=== PATIENT | male | born 1990 | race Caucasian/White ===

== ENCOUNTER 2023-08-02 10:11 | Outpatient (CLI) | payer OTHER, SELFPAY ==
--- NOTE | 2023-08-02 10:22 | XR_ITS ---
FINAL REPORT CLINICAL HISTORY: right elbow pain COMPARISON: None FINDINGS: AP, oblique, and lateral views of the right elbow were obtained. There is no prior exam for comparison. There is no acute fracture or dislocation. Joint space is preserved. There is no joint effusion. There is a 5 mm linear foreign body present in the antecubital fossa subcutaneous tissues. IMPRESSION: No acute osseous abnormality of the right elbow. 5 mm linear foreign body in the antecubital fossa subcutaneous tissues. Reviewed, Interpreted and Dictated by Ranulfo Brar III, MD Transcribed by Tory Olguin Authenticated and [facility]
== END 2023-08-02 23:59 ==
LOC: RAD 10:12
PROVIDERS: PCP Pediatrics; Visit Provider Orthopaedic Surgery
DX: M25.521 Pain in right elbow (principal)
CPT/HCPCS: 73080

== ENCOUNTER 2024-08-10 14:34 | Emergency (ER) | payer OTHER, SELFPAY ==
[2024-08-10 14:38] VITALS: BP 146/102; PULSE 89; RESP 18; TEMP 36.4; O2SAT 98; BMI 26.6
--- NOTE | 2024-08-10 15:48 | ED_ITS ---
Discharge Plan Disposition Patient Disposition: Home, Self-Care Prescriptions Prescriptions: New sulfamethoxazole-trimethoprim [Bactrim DS] 800-160 mg tablet 1 tab PO BID 10 Days Qty: 20 0RF No Action varenicline tartrate [Chantix Starting Month Box] 0.5 mg (11)- 1 mg (42) tablets,dose pack See Rx Instructions PO PER PKG DIR Qty: 53 0RF Rx Instructions: PO PER PKG DIR Referrals Follow up/Referrals: Juan Hernandez MD [Primary Care Provider] - See instructions Activity Restrictions/Add. Instructions Additional Instructions/Restrictions: You had an abscess on your buttock with surrounding cellulitis. Incision and drainage was performed please floss the vessel loop as discussed once a day over the next week you may cut it out as soon as there is no longer any blood or pus or drainage. Return with any significant worsening over 48 to 72 hours. Finish your antibiotic course. Clinical Impressions Clinical Impression: Abscess of buttock, Cellulitis of buttock Instructions Patient Instructions: DI for Skin Abscess Print Language Print Language: Mongolian Discharge ED Provider: Geovany Crow General Adult HPI <Baldomero Mckinney MD - Last Filed: 08/10/24 15:50> General Chief complaint: Skin/Abscess/Foreign Body Stated complaint: poss. boil on left buttocks w/swelling w/nausea Time Seen by Provider: 08/10/24 15:23 Mode of Arrival: Ambulatory Source of Information: Patient Limitations: No Limitations Description of Symptoms (Recalled from ER Triage Doc. by RN): Pt presents states he has a boil on his left buttocks. Pt states he has had it for 3 days. History of Present Illness HPI narrative: 34-year-old with pain and erythema over the last 3 days on his left superior aspect of his buttock. Had does have a history of abscesses. No other significant past medical history. Related Data Previous Rx's ?Medication ?Instructions ?Recorded varenicline tartrate 0.5 mg (11)-1 See Rx Instructions PO PER PKG DIR 07/14/ mg (42) tablets in a dose pack #53 tabs (Chantix Starting Month Box) sulfamethoxazole 800 1 tab PO BID 10 days #20 tabs 08/10/24 mg-trimethoprim 160 mg tablet (Bactrim DS) Allergies Allergy/AdvReac Type Severity Reaction Status Date / Time Penicillins Allergy Unknown Unknown Verified 08/02/23 10:35 allergy reaction REPLACED BY [facility] <Baldomero Mckinney MD - Last Filed: 08/10/24 15:50> REPLACED BY [facility] Disclaimer: The information contained in this section may have been updated after the patient was seen, as this information can be updated by other users. Medical History Active asthma Social History Smoking Status: Current every day smoker tobacco type: cigarettes packs per day: 1 second hand exposure: Yes alcohol intake: never substance use type: denies use current occupational status: employed and other Travel in the last 8 weeks: None caffeine: Yes Have you lived/traveled outside [place] in past 30 days?: No Contact w/someone who lives/traveled outside [place] past 30 days?: No Exposure to someone with infectious disease in past 14 days?: No Do you have a fever (greater than 100.4 F or 38 C)?: No Have you tested positive for COVID-19: No Exposed to someone with COVID-19 in past 14 days?: No Do you have a sore throat?: No Do you have a cough?: No Do you have any weakness?: No Do you have any diarrhea?: No Are you experiencing any unusual bleeding?: No Do you have any muscle aches/pain?: No Do you have any abdominal pain?: No Are you experiencing loss of taste or smell?: No Other Medical History Have you received the Flu Vaccine for this season: No Have you received the Pneumonia Vaccine: No <Baldomero Mckinney MD - Last Filed: 08/10/24 15:50> ROS Obtained: Yes All systems reviewed & no additional complaints except as documented Physical Exam <Baldomero Mckinney MD - Last Filed: 08/10/24 15:50> General General appearance: alert and in no apparent distress Respiratory Respiratory exam: Present normal lung sounds bilaterally Cardiovascular Cardiovascular exam: Present regular rate Back Exam Back 1 view image: 2 1. Erythema and tenderness and fluctuance Neurological Exam Neurological exam: Present alert and oriented X3 Medical Decision Making <Baldomero Mckinney MD - Last Filed: 08/10/24 15:50> Medical Records Screening: Per USPSTF and CDC recommendations, given the prevalence of disease in our region, it is our hospital?s policy to screen for HIV and viral Hepatitis for all patients aged 18 and over and those with ongoing risk factors. [place] Inquiry Pt receiving controlled substance: No Vital Signs: 08/10/24 14:38 08/10/24 15:53 Temperature 97.6 F 97.8 F Temperature Source Temporal Artery Scan Temporal Artery Scan Pulse Rate 80 Pulse Rate [Right] 89 Respiratory Rate 18 18 Blood Pressure 148/98 H Blood Pressure [Right Arm] 146/102 H Blood Pressure Mean [Right Arm] 116 Blood Pressure Source Automatic Cuff Blood Pressure Source [Right Arm] Automatic Cuff Blood Pressure Position [Right Arm] Sitting 02 Sat by Pulse Oximetry 98 Oxygen Delivery Method Room Air Room Air Orders (Tests/Meds): ED MEDICATIONS Discontinued Medications Generic Name Dose Route Start Last Admin Trade Name Freq PRN Reason Stop Dose Admin Trimethoprim/Sulfamethoxazole 1 each 08/10/24 15:45 08/10/24 15:50 Sulfa/Trimethoprim 1 Tablet PO 08/10/24 15:46 1 each ONCE ONE Administration ORDERS Category Date Time Status POCUS Point of Care (ER Only) Stat Exams 08/10/24 15:24 Completed Wound Culture and Gram Stain Stat Micro 08/10/24 15:30 Results Medical Decision Narrative: Systemically well nontoxic-appearing 34-year-old with no significant past medical history presents today with erythema redness and tenderness over the superior aspect of the left buttock. Bedside ultrasound does not fact demonstrate a localize drainable fluid collection this is nowhere near the perirectal region. Incision and drainage was successfully performed patient felt significantly better first dose of antibiotics given in the ED and prescription of antibiotics into his pharmacy. Return precautions emphasized and wound management discussed patient discharged in stable condition. <Geovany Crow MD - Last Filed: 08/11/24 07:36> Vital Signs: 08/10/24 14:38 08/10/24 15:53 Temperature 97.6 F 97.8 F Temperature Source Temporal Artery Scan Temporal Artery Scan Pulse Rate 80 Pulse Rate [Right] 89 Respiratory Rate 18 18 Blood Pressure 148/98 H Blood Pressure [Right Arm] 146/102 H Blood Pressure Mean [Right Arm] 116 Blood Pressure Source Automatic Cuff Blood Pressure Source [Right Arm] Automatic Cuff Blood Pressure Position [Right Arm] Sitting 02 Sat by Pulse Oximetry 98 Oxygen Delivery Method Room Air Room Air Orders (Tests/Meds): ED MEDICATIONS Discontinued Medications Generic Name Dose Route Start Last Admin Trade Name Gwen PRN Reason Stop Dose Admin Trimethoprim/Sulfamethoxazole 1 each 08/10/24 15:45 08/10/24 15:50 Sulfa/Trimethoprim 1 Tablet PO 08/10/24 15:46 1 each ONCE ONE Administration ORDERS Category Date Time Status POCUS Point of Care (ER Only) Stat Exams 08/10/24 15:24 Completed Wound Culture and Gram Stain Stat Micro 08/10/24 15:30 Results Medical Decision Narrative: Systemically well nontoxic-appearing 34-year-old with no significant past medical history presents today with erythema redness and tenderness over the superior aspect of the left buttock. Bedside ultrasound does in fact demonstrate a localize drainable fluid collection this is nowhere near the perirectal region. Incision and drainage was successfully performed patient felt significantly better first dose of antibiotics given in the ED and prescription of antibiotics into his pharmacy. Return precautions emphasized and wound management discussed patient discharged in stable condition. Procedures <Baldomero Mckinney MD - Last Filed: 08/10/24 15:50> Abscess I/D Site: other (Left buttock) Local Anesthetic: lidocaine 1% and with epi Amount of anesthesia used (mL): 10 Technique: incised with #11 blade Amount of fluid expressed (mL): 5 Irrigation: Yes Packing used?: plain (Rubber vessel loop) Miscellaneous Procedure Procedure Performed: Limited soft tissue ultrasound Indication: Swelling and pain redness Identified structures: Location: Left superior aspect of the buttock Findings: Cobblestoning and 1 x 3 cm localized fluid collection Impression: Localized abscess with surrounding cellulitis Images were saved to permanent archive The study was technically adequate Soft Tissue CPT Codes: CPT Neck: 97039-46 CPT Upper extremity: 71386-64 CPT Axilla: 67372-22 CPT Chest wall: 64970-12 CPT Breast: 54015-10-XO/LT (complete), 61517-38-UP/LT (limited), CPT Upper Back: 96100-95 CPT Lower Back: 57350-23 CPT Abdominal Wall: 35835-32 CPT Pelvic Wall: 79569-60 CPT Lower Extremity: 05890-80 CPT Other Soft Tissue: 45232-14 This study was performed by me, and I personally interpreted all images/videos. Based on my clinical judgement, these images were adequate and did not necessitate further imaging. Critical Care <Baldomero Mckinney MD - Last Filed: 08/10/24 15:50> Critical Care Time Critical Care Time: No
[2024-08-10] MEDS: SULFA/TRIMETHOPRIM 1 TABLET 1 EACH PO (15:50)
[2024-08-10 15:53] VITALS: BP 148/98; PULSE 80; RESP 18; TEMP 36.6; O2SAT 97
--- NOTE | 2024-08-13 12:23 | PC.NURSE ---
Discussed wound culture with , no new orders
--- NOTE | 2024-08-15 08:34 | PC.NURSE ---
WOUND CULTURE DISCUSSED WITH DR ROSALES, NO NEW ORDERS
== END 2024-08-10 15:55 | disposition home or self-care (01) ==
PROVIDERS: Emergency Provider Emergency Medicine; PCP Pediatrics
DX: L02.31 Cutaneous abscess of buttock (principal); L03.317 Cellulitis of buttock; F17.210 Nicotine dependence, cigarettes, uncomplicated
CPT/HCPCS: 10060; 87070; 87077; 87186; 87205; 99283

== ENCOUNTER 2024-09-10 10:37 | Outpatient (CLI) | payer OTHER, SELFPAY ==
--- NOTE | 2024-09-10 10:42 | XR_ITS ---
FINAL REPORT CLINICAL HISTORY: right knee pain states injury a while ago FINDINGS: AP, lateral and oblique views of the right knee were obtained. There is no prior exam for comparison. There is no acute osseous abnormality of the right knee. The joint space is preserved. The soft tissues are normal. There is no joint effusion. IMPRESSION: No acute osseous abnormality of the right knee. Reviewed, Interpreted and Dictated by Amalia Hernandez MD Transcribed by Chelsie Tyler Authenticated and [facility]
--- NOTE | 2024-09-10 10:42 | XR_ITS ---
FINAL REPORT CLINICAL HISTORY: right elbow pain states chronic pain from his job FINDINGS: AP, oblique, and lateral views of the right elbow were obtained. There is no prior exam for comparison. There is no acute fracture or dislocation. Joint space is preserved. There is a curvilinear metallic foreign body measuring 7 mm within the lateral anterior soft tissues. A broken needle is suspected. There is no joint effusion or other soft tissue abnormality. IMPRESSION: No acute osseous abnormality of the right elbow. Reviewed, Interpreted and Dictated by Amalia Hernandez MD Transcribed by Chelsie Tyler Authenticated and [facility]
--- NOTE | 2024-09-10 10:42 | XR_ITS ---
FINAL REPORT CLINICAL HISTORY: left elbow pain states chronic pain from his job FINDINGS: AP, oblique, and lateral views of the left elbow were obtained. There is no prior exam for comparison. There is no acute fracture or dislocation. Joint space is preserved. There is no joint effusion or other soft tissue abnormality. IMPRESSION: No acute osseous abnormality of the right elbow. Reviewed, Interpreted and Dictated by Amalia Hernandez MD Transcribed by Chelsie Tyler Authenticated and [facility]
== END 2024-09-10 23:59 | disposition home or self-care (01) ==
LOC: RAD 10:38
PROVIDERS: PCP Pediatrics; Visit Provider Physician Assistant
DX: M25.522 Pain in left elbow (principal); M25.521 Pain in right elbow; M25.561 Pain in right knee
CPT/HCPCS: 73080; 73562